=== PATIENT | female | born 1975 | race Caucasian/White ===

== ENCOUNTER 2017-05-14 07:12 | Emergency (ER) | payer OTHER ==
[~2017-05-14] VITALS: Ht 172.7 cm; Wt 127.0 kg
--- NOTE | ~2017-05-14 | CR127 ---
[facility]. [facility] A Service of [facility] RADIOLOGY TEXT RESULTS PATIENT: SHAWN HUTTON LOCATION: SED : 77 UNIT #: [id number] AGE: [address]: Tawanna Nunez MD SEX: F ORDER DR: [id number] [address] [address] [id number] E MR#: [id number] Acc #: [id number] NAME: SHAWN HUTTON : 1975 SEX: F STUDY DATE/TIME: 05/14/2017 7:47 UNIT: SED ROOM: STUDY DESCRIPTION: CR Foot Complete Min 3 View Rt Attending Physician: Tawanna Nunez M.D. Ordering Physician: Tawanna Nunez M.D. Primary Care Physician: No Primary Care Physician MEDICAL IMAGING REPORT This report is preliminary unless electronic signature is present. EXAM Right foot, 3 views, 05/14/2017. HISTORY Right foot pain, pain at third toe, third toe bruising and pain second, third and fourth metatarsal regions, status post fall yesterday. FINDINGS Three views of the right foot demonstrate oblique minimally-displaced fracture through the base of the third middle phalanx. There is approximately 1 mm medial displacement of the distal fragment. No other fracture or dislocation is seen. The bones are normally mineralized. There is soft tissue swelling about the third phalanx. 5 mm plantar calcaneal spur. IMPRESSION Minimally displaced oblique fracture through the base of the third middle phalanx. Dictated by... Felix Mendoza M.D. THIS IS AN ELECTRONICALLY VERIFIED REPORT Felix Mendoza M.D. at 05/15/2017 6:32 AM SANTIAGO/robert TD: 05/14/2017 22:00 JOB #: [id number] MEDICAL IMAGING REPORT Page 1 of 1
[~2017-05-14 07:12] MED LIST: ANTIHISTAMINE25 M1 PO; BACTRIM DS TABL1 TA1 PO; MOTRIN600 M2 DOB; VOLTAREN75 MG PO
[2017-05-14] MEDS ORDERED: NO MEDICATIONS (07:19)
== END 2017-05-14 08:30 | disposition home or self-care (01) ==
LOC: SED 07:12
DX: S92.521A Displaced fracture of middle phalanx of right lesser toe(s), initial encounter for closed fracture (principal); W10.9XXA Fall (on) (from) unspecified stairs and steps, initial encounter
CPT/HCPCS: 29550; 73630; 99283